=== PATIENT | female | born 1980 | race African-American/Black ===

== ENCOUNTER 2017-06-21 09:05 | Emergency (ER) | payer BC ==
[~2017-06-21] VITALS: Ht 172.7 cm; Wt 90.7 kg
--- NOTE | ~2017-06-21 | CR170 ---
[facility] A Service of [facility] & [facility] RADIOLOGY TEXT RESULTS PATIENT: JAYLYN TARANGO LOCATION: CFTX : [id number] UNIT #: [id number] AGE: [address]: Shelly Saba SEX: F ORDER DR: [id number] [facility] [address] [place], [place] [address] [id number] E MR#: [id number] #: [id number] NAME: JAYLYN TARANGO : 1980 SEX: F STUDY DATE/TIME: 06/21/2017 0940 UNIT: [facility] ROOM: STUDY DESCRIPTION: CR Knee 2 Views Rt Attending Physician: Shelly Saba P.A.-C. Ordering Physician: Shelly Saba P.A.-C. Primary Care Physician: No Primary Care Physician MEDICAL IMAGING REPORT This report is preliminary unless electronic signature is present EXAM Right knee, 2 views, 06/21/2017, 0940 hours. CLINICAL HISTORY Right knee pain with weightbearing for 1 week. No known injury. COMPARISON None FINDINGS AP and cross-table lateral views demonstrate trace synovial thickening or fluid in the suprapatellar bursa. There is no fracture or joint space loss. There is trace spurring in the lateral compartment. IMPRESSION There is trace synovial thickening or fluid in the suprapatellar bursa with no fracture or loose body. There is spurring in the lateral compartment but no significant joint space loss. Dictated by... Diane Pressley M.D. THIS IS AN ELECTRONICALLY VERIFIED REPORT Diane Pressley M.D. at 06/21/2017 2:30 PM JAMES/liliam TD: 06/21/2017 14:25 JOB #: [id number] MEDICAL IMAGING REPORT Page 1 of 1 COPY
== END 2017-06-21 10:10 | disposition home or self-care (01) ==
LOC: CED 09:05 → CFTX 09:05
DX: M70.51 Other bursitis of knee, right knee (principal); R03.0 Elevated blood-pressure reading, without diagnosis of hypertension
CPT/HCPCS: 29530; 73560; 99283